=== PATIENT | female | born 2000 | race African-American/Black ===

== ENCOUNTER 2019-10-06 13:54 | Emergency (ER) | payer SELFPAY ==
[~2019-10-06] VITALS: Ht 167.6 cm; Wt 102.0 kg
[2019-10-06 14:08] VITALS: BP 129/84
[2019-10-06] MEDS ORDERED: ACETAMINOPHEN 325MG TABLET PO ONE (16:15)
== END 2019-10-06 16:35 | disposition home or self-care (01) ==
LOC: ER 13:54
DX: B34.9 Viral infection, unspecified (principal)
CPT/HCPCS: 99282